=== PATIENT | female | born 1950 | race Caucasian/White ===

== ENCOUNTER 2022-03-08 16:52 | Emergency (ER) | payer MEDICARE ==
[2022-03-08 17:47] LABS: BASOPHIL 0.5 % (0-2); EOSINOPHIL 1.7 % (0-7); HCT 37.5 % (37.0-47.0); HGB 12.3 g/dl (12.5-16.0); LYMPHOCYTE 23.6 % (15-48); MCH 32.6 pg (25.0-31.0); MCHC 32.8 g/dL (32.0-36.0); MCV 99.5 fL (78.0-100.0); MONOCYTE 8.5 % (0-12); MPV 9.7 fL (6.0-9.5); NEUTROPHIL 64.9 % (41-80); NRBC 0; PLT 228 K/uL (150-400); RBC 3.77 M/uL (4.20-5.40); RDW 13.1 % (11.5-14.0); WBC 9.4 K/uL (4.0-10.5)
[2022-03-08 18:10] LABS: ALBUMIN 3.1 g/dL (3.4-5.0); BILIRUBIN - TOTAL 0.3 mg/dL (0.2-1.0); BUN/CREAT RATIO (CALC) 18.6 RATIO; CREATININE 1.56 mg/dL (0.51-0.95); GLOBULIN (CALCULATION) 3.9 g/dL; POTASSIUM 4.1 mmol/L (3.5-5.1)
[2022-03-08 20:08] LABS: BILIRUBIN NEGATIVE (NEGATIVE); BLOOD NEGATIVE Ery/uL (NEGATIVE); CLARITY CLEAR (CLEAR); COLOR YELLOW (YELLOW); GLUCOSE (U) NORMAL (NORMAL); LEUKOCYTES NEGATIVE Leu/uL (NEGATIVE); NITRITE NEGATIVE (NEGATIVE); PROTEIN 2+ mg/dL (NEGATIVE); SPECIFIC GRAVITY 1.025 (1.001-1.030); UROBILINOGEN 0.2 mg/dL (0.2-1.0)
[2022-03-08 20:37] LABS: CALCIUM OXALATE CRYSTALS LARGE; MUCOUS TRACE; URINARY RBC RARE
[2022-03-08] MEDS ORDERED: PERMETHRIN CREA60 GM TOP (20:50)
== END 2022-03-08 22:33 | disposition home or self-care (01) ==
LOC: FER 16:52
PROVIDERS: Emergency Medicine; Internal Medicine
DX: T67.5XXA Heat exhaustion, unspecified, initial encounter (principal); T79.6XXA Traumatic ischemia of muscle, initial encounter; R55 Syncope and collapse; E11.9 Type 2 diabetes mellitus without complications; I10 Essential (primary) hypertension; X30.XXXA Exposure to excessive natural heat, initial encounter
CPT/HCPCS: 36415; 70450; 80053; 81001; 82550; 84484; 85025; 93005; J7030